=== PATIENT | male | born 1990 | race African-American/Black ===

== ENCOUNTER 2016-05-07 17:01 | Emergency (ER) | payer BC ==
--- NOTE | 2016-05-08 20:29 | ER ---
SUBJECTIVE: The patient is a 25-year-old, normally healthy male who likes to drink a lot of sports drinks including Monsters and Rockstars and take a lot of caffeine. He has been told not to this before because he gets sinus tachycardia and arrhythmia and has almost passed out before. He knows he is not supposed to do this and was not for a while, but he started again. He comes in today because he had some palpitations while at work, felt a little weak and was told to come to the hospital. He felt he would pass out, but he did not. No fevers, nausea, vomiting, chest pain, or shortness of breath. No bowel or bladder changes. No bleeding. He states he did drink 4 of these large cans of these drinks last night and this morning, and since that time, he began to have his symptoms. He was also concerned because a friend has saw a vein behind his ear that seemed to be pulsating. He denies any trauma, fall, syncope, but felt likely he is going to pass out. No abdominal pain. No back pain. No recent injury. PAST MEDICAL HISTORY: Significant for previous occurrences of palpitations and tachycardia, but drinking sports drinks such as Monster and Rockstars. He does have a history of migraine headaches, does not have one now. CURRENT MEDICATIONS: Denied. ALLERGIES: Denied. SOCIAL HISTORY: He has been smoking for 5 years. He denies any alcohol or other recreational drug use, but does drink energy drinks. REVIEW OF SYSTEMS: Palpitations earlier, none now. He felt weak like he might faint, but he did not. No headache. No syncope. No vision changes. No nausea, vomiting, back pain, chest pain, shortness of breath, abdominal pain, bowel or bladder changes or bleeding. Please see HPI. OBJECTIVE: Vital Signs: Stable. He is afebrile. General: Healthy appearing, interactive, smiling, very appropriate, appears in no distress, nontoxic. Normal speech. No respiratory distress. A and O x3. GCS of 15. HEENT: Conjunctivae are clear. HEENT exam non-remarkable. Neck: Non-remarkable. Chest: Clear. CV: RRR. Abdomen: Soft, benign. Back: Non-remarkable. Skin: Clear. Neuro: Non-remarkable. DIAGNOSTIC DATA: An EKG was done, it was non-remarkable shows normal sinus rhythm without any acute changes. Overall, he is healthy. Vitals are stable. He is back to normal. ASSESSMENT: Palpitations and tachycardia after drinking sports drink with history of same and advised not to, but the patient noncompliant. Stable exam and workup at this point. PLAN: Discharged to home in stable and improved condition. Recommend no more sports drinks or excessive caffeine. Follow up with PCP morteza. Return for emergent issues. [facility] /[id number]
--- NOTE | 2016-05-28 12:11 | EKG ---
05/07/2016 - SAM SANTANA - TIME: 1718 hours. I reviewed the EKG and agree with the machine's reading. [facility] /[id number]
== END 2016-05-07 18:21 | disposition home or self-care (01) ==
LOC: DL.ED 17:01
CPT/HCPCS: 93005; 99285

== ENCOUNTER 2016-08-15 13:52 | Emergency (ER) | payer BC ==
[2016-08-15 14:05] VITALS: BP 126/61
--- NOTE | 2016-08-15 14:40 | EDM.PDOC ---
ED HPI GENERAL MEDICAL PROBLEM - General Chief Complaint: Skin Complaint Stated Complaint: [id number] BLISTERS AND ITCHING Time Seen by Provider: 08/15/16 14:07 Source of Information: Reports: Patient History Limitations: Reports: No Limitations - History of Present Illness INITIAL COMMENTS - FREE TEXT/NARRATIVE: Patient comes emergency Department today with complaints of a rash. Approximately 1 week ago he had some generalized aches and pains and malaise and fever. Shortly thereafter he developed a funny spot on his left anterior chest just lateral of his nipple. It had a very specific look to it with well- defined borders. A couple of days later he developed a rash that is primarily on his chest and his back as well as the proximal aspect of his upper extremities. He has not had a fever. He denies any malaise or fatigue at this time. He denies any difficulty breathing or shortness of breath. He denies any swelling in his throat. He denies any exposure to any new medication soaps detergents. - Related Data Allergies Allergy/AdvReac Type Severity Reaction Status Date / Time No Known Allergies Allergy Verified 08/15/16 14:02 Home Meds: Home Meds . [No Known Home Meds] 02/19/16 [History] Past Medical History - Past Health History Medical/Surgical History: Denies Medical/Surgical History HEENT History: Reports: None Cardiovascular History: Reports: None Respiratory History: Reports: None Gastrointestinal History: Reports: None Genitourinary History: Reports: None Musculoskeletal History: Reports: None Neurological History: Reports: Migraines Other Neuro History: hx migraine headaches- treats with tylenol Psychiatric History: Reports: None Endocrine/Metabolic History: Reports: None Hematologic History: Reports: None Immunologic History: Reports: None Oncologic (Cancer) History: Reports: None Dermatologic History: Reports: None - Infectious Disease History Infectious Disease History: Reports: Chicken Pox - Past Surgical History Head Surgeries/Procedures: Reports: None Social & Family History - Family History Family Medical History: Unobtainable - Tobacco Use Smoking Status *Q: Current Every Day Smoker Years of Tobacco use: 5 Packs/Tins Daily: 0.5 Used Tobacco, but Quit: No Second Hand Smoke Exposure: Yes - Caffeine Use Caffeine Use: Reports: Energy Drinks - Recreational Drug Use Recreational Drug Use: No Drug Use in Last 12 Months: Yes Recreational Drug Type: Reports: Marijuana/Hashish Recreational Drug Use Frequency: Weekly Recreational Drug Last Use: t-2 - Living Situation & Occupation Occupation: Employed ED ROS GENERAL - Review of Systems Review Of Systems: ROS reveals no pertinent complaints other than HPI. ED EXAM, SKIN/RASH Exam: See Below Exam Limited By: No Limitations General Appearance: Alert, WD/WN, No Apparent Distress Nose: Normal Inspection, Normal Mucosa Throat/Mouth: Normal Inspection, Normal Lips, Normal Teeth, Normal Gums, Normal Oropharynx Head: Atraumatic, Normocephalic Neck: Normal Inspection, Supple, Non-Tender Respiratory/Chest: No Respiratory Distress, Lungs Clear, Normal Breath Sounds, No Accessory Muscle Use Cardiovascular: Normal Peripheral Pulses, Regular Rate, Rhythm Back Exam: Other (Rash as noted below) Extremities: Other (Rash as noted below) Neurological: Alert, Oriented Psychiatric: Normal Affect, Normal Mood Skin: Dry, Intact, Normal Color, Rash (On his anterior left chest just next to his left nipple there is a patch that is salmon-colored in nature with well- defined borders. There is no erythema induration or exudate. On the anterior and posterior thorax as well as his proximal upper extremities there are multiple individual papular rashes without erythema or exudate induration or discharge. The patch next to his nipple on the anterior chest appears to be a herald patch.) Location, Skin: Chest, Back, Upper Extremity, Right, Upper Extremity, Left, Lower Extremity, Right, Lower Extremity, Left, Other (Extremities are primarily proximal in nature.) Course - Vital Signs Last Recorded V/S: Last Vital Signs Temp 36.3 C 08/15/16 14:02 Pulse 77 08/15/16 14:02 Resp 18 08/15/16 14:02 BP 126/61 08/15/16 14:02 Pulse Ox 100 08/15/16 14:02 - Orders/Labs/Meds Orders: Active Orders 24 hr Category Date Time Status CULTURE STREP A CONFIRMATION [RM] Stat Lab 08/15/16 14:18 Results STREP SCRN A RAPID W CULT CONF [RM] Stat Lab 08/15/16 14:18 Results - Re-Assessments/Exams Free Text/Narrative Re-Assessment/Exam: 08/15/16 16:23 I explained to the patient that this is consistent with pityriasis rosea. Symptomatic management is appropriate at this time and corticosteroids are not indicated as it may increase the risk for recurrence of pityriasis rosea. Departure - Departure Time of Disposition: 14:41 Disposition: Home, Self-Care 01 Clinical Impression: Pityriasis rosea - Discharge Information Instructions: Pityriasis Rosea Referrals: PCP,None [Primary Care Provider] - Forms: ED Department Discharge Additional Instructions: Benadryl as needed for itching. 1-2 tabs every 6 hrs as needed for itching. Moisturize your skin with Eucercin Cetaphil or other cream based lotions. Topical Hydrocortisone can be used for itching as well. Do not place on the face. Rash can maintain for up to 2 months. Return to the ED if new or worsening symptoms. Follow with primary care in the next 7 days if worse. - My Orders Last 24 Hours: My Active Orders 08/15/16 14:18 CULTURE STREP A CONFIRMATION [RM] Stat STREP SCRN A RAPID W CULT CONF [RM] Stat - Assessment/Plan Last 24 Hours: My Active Orders 08/15/16 14:18 CULTURE STREP A CONFIRMATION [RM] Stat STREP SCRN A RAPID W CULT CONF [RM] Stat Assessment:: Pityriasis rosea Plan: Benadryl as needed for itching. 1-2 tabs every 6 hrs as needed for itching. Moisturize your skin with Eucercin Cetaphil or other cream based lotions. Topical Hydrocortisone can be used for itching as well. Do not place on the face. Rash can maintain for up to 2 months. Return to the ED if new or worsening symptoms. Follow with primary care in the next 7 days if worse.
== END 2016-08-15 14:52 | disposition home or self-care (01) ==
LOC: DL.ED 13:52
DX: L42 Pityriasis rosea (principal); G43.909 Migraine, unspecified, not intractable, without status migrainosus; F17.210 Nicotine dependence, cigarettes, uncomplicated
CPT/HCPCS: 87081; 87430; 99283